=== PATIENT | male | born 1985 | race Caucasian/White ===

== ENCOUNTER 2024-03-06 12:19 | Emergency (ER) | payer MEDICARE, MEDICAID ==
[~2024-03-06] VITALS: Ht 165.1 cm; Wt 87.7 kg
[~2024-03-06 12:19] MED LIST: NO HOME MEDS
[2024-03-06 13:51] VITALS: BP 146/80; PULSE 89; RESP 17; TEMP 98.1; O2SAT 99
== END 2024-03-06 13:52 | disposition home or self-care (01) ==
LOC: ER 12:19
DX: S93.691A Other sprain of right foot, initial encounter (principal); F41.9 Anxiety disorder, unspecified; F32.A Depression, unspecified; F20.9 Schizophrenia, unspecified; F10.90 Alcohol use, unspecified, uncomplicated; F15.90 Other stimulant use, unspecified, uncomplicated; Z59.00 Homelessness unspecified; Z56.0 Unemployment, unspecified; Z88.1 Allergy status to other antibiotic agents; X50.1XXA Overexertion from prolonged static or awkward postures, initial encounter; Y93.89 Activity, other specified; Y92.89 Other specified places as the place of occurrence of the external cause; Y99.8 Other external cause status
CPT/HCPCS: 73610; 73630; 99284